=== PATIENT | female | born 1995 | race Caucasian/White ===

== ENCOUNTER 2020-06-02 09:33 | Outpatient (REF) | payer OTHER, SELFPAY ==
[2020-06-02 10:08] LABS: MANUAL DIFF FLAG NO
[2020-06-02 10:15] LABS: Basophils Percent Auto 0.3 % (0-2); Eosinophils Absolute Auto 0.1 X10*3/uL (0.0-0.4); Eosinophils Percent Auto 1.7 % (0-4); Hematocrit 40.2 % (37-47); Hemoglobin 13.2 g/dl (12.0-16.0); Imm Gran Abs Auto 0.02 X10*3/uL (0.00-0.03); Imm Gran Pct Auto 0.3 % (0.0-0.4); Lymphocytes Absolute Auto 1.5 X10*3/uL (1.2-4.9); Mean Corpuscular HGB Conc 32.8 g/dl (31.0-35.0); Mean Corpuscular Hemoglobin 29.1 pg (27.0-33.0); Mean Corpuscular Volume 88.7 fL (80-98); Mean Platelet Volume 10.5 fL (9.4-12.3); Monocytes Absolute Auto 0.4 X10*3/uL (0.1-1.2); Monocytes Percent Auto 6.7 % (2-11); Neutrophils Absolute Auto 3.9 X10*3/uL (2.0-8.3); Platelet Count 300 X10*3/uL (160-400); Red Blood Count 4.53 X10*6/uL (4.20-5.50); Red Cell Distribution Width 12.8 % (11.0-16.0); White Blood Count 5.8 X10*3/uL (4.8-10.8)
[2020-06-02 11:07] LABS: Anion Gap 11 (12-20); Blood Urea Nitrogen 12 mg/dL (9-16); Calcium 9.8 mg/dL (8.4-10.2); Carbon Dioxide 28 mmol/L (22-29); Chloride 105 mmol/L (96-108); Cholesterol 188 mg/dL; Estimated Glomerular Filt Rate > 60; Glucose Fasting 61 mg/dL (60-99); HDL Cholesterol 66 mg/dL; LDL Cholesterol Calculated 109 mg/dl; Potassium 4.8 mmol/l (3.3-5.1); Sodium 139 mmol/L (135-145); Triglycerides 65 mg/dL
[2020-06-02 11:37] LABS: TSH reflex Free T4 0.85 mIU/mL (0.32-4.0)
[2020-06-02 12:06] LABS: Reflex LDLD? No
== END 2020-06-02 09:34 | disposition home or self-care (01) ==
LOC: HO.LAB 09:33
PROVIDERS: PCP Nurse Practitioner Family; Visit Provider Nurse Practitioner Family
DX: Z00.00 Encounter for general adult medical examination without abnormal findings (principal)
CPT/HCPCS: 36415; 80048; 80061; 84443; 85025

== ENCOUNTER 2023-03-18 06:07 | Outpatient (REF) | payer OTHER, SELFPAY ==
[2023-03-18 06:20] LABS: MANUAL DIFF FLAG NO
[2023-03-18 07:18] LABS: Basophils Percent Auto 0.7 % (0-2); Eosinophils Absolute Auto 0.2 X10*3/uL (0.0-0.4); Eosinophils Percent Auto 3.2 % (0-4); Hematocrit 41.2 % (37.0-47.0); Imm Gran Abs Auto 0.02 X10*3/uL (0.00-0.03); Imm Gran Pct Auto 0.3 % (0.0-0.4); Lymphocytes Absolute Auto 1.8 X10*3/uL (1.2-4.9); Lymphocytes Percent Auto 30.1 % (20-40); Mean Corpuscular HGB Conc 31.6 g/dl (31.0-35.0); Mean Corpuscular Hemoglobin 28.6 pg (27.0-33.0); Mean Corpuscular Volume 90.7 fL (80.0-98.0); Monocytes Absolute Auto 0.4 X10*3/uL (0.1-1.2); Monocytes Percent Auto 6.8 % (2-11); Neutrophils Absolute Auto 3.5 x10*3/uL (2.0-8.3); Neutrophils Percent Auto 58.9 % (45-73); Platelet Count 303 X10*3/uL (160-400); Red Blood Count 4.54 X10*6/uL (4.20-5.50); Red Cell Distribution Width 13.1 % (11.0-16.0); White Blood Count 5.9 X10*3/uL (4.8-10.8)
[2023-03-18 07:50] LABS: Alanine Aminotransferase 41 U/L (0-31); Albumin Level 4.2 g/dL (3.5-5.0); Alkaline Phosphatase 47 U/L (39-117); Anion Gap 10 (12-20); Aspartate Amino Transferase 25 U/L (5-31); Bilirubin Total 0.7 mg/dL (0.0-1.0); Blood Urea Nitrogen 7 mg/dL (9-16); Calcium 9.8 mg/dL (8.4-10.2); Carbon Dioxide 27 mmol/L (22-29); Chloride 105 mmol/L (96-108); Cholesterol 171 mg/dL; Estimated Glomerular Filt Rate > 60; Glucose Random 85 mg/dL (60-115); HDL Cholesterol 70 mg/dL; LDL Cholesterol Calculated 91 mg/dl; Potassium 4.8 mmol/L (3.3-5.1); Sodium 137 mmol/L (135-145); Total Protein 7.4 g/dL (6.5-8.0); Triglycerides 54 mg/dL
[2023-03-18 08:10] LABS: Free T4 (Free Thyroxine) 0.94 ng/dL (0.71-1.85); Thyroid Stimulating Hormone 2.26 uIU/mL (0.32-4.0); Vitamin D 25-OH Total 30.1 ng/mL (>30)
[2023-03-18 08:32] LABS: Folate 15.1 ng/mL (> or = 4.0); Vitamin B12 597 pg/mL (200-900)
== END 2023-03-18 06:08 | disposition home or self-care (01) ==
LOC: HO.LAB 06:07
PROVIDERS: PCP Internal Medicine; Visit Provider Internal Medicine
DX: R42 Dizziness and giddiness (principal); E78.00 Pure hypercholesterolemia, unspecified; E55.9 Vitamin D deficiency, unspecified
CPT/HCPCS: 36415; 80053; 80061; 82306; 82607; 82746; 84439; 84443; 85025

== ENCOUNTER 2023-03-25 12:55 | Outpatient (AMB) | payer OTHER, SELFPAY ==
[2023-03-25 13:02] VITALS: BP 120/78; PULSE 77; O2SAT 98; BMI 21.3
--- NOTE | 2023-03-25 13:02 | MHC.PC.OV ---
Vital Signs 03/25/23 13:02 Height 5 ft 4 in Weight 56.245 kg BMI 21.3 BP 120/78 Blood Pressure Location Lt brachial Position Sitting Pulse 77 Pulse Source Pulse Oximeter Pulse Oximetry (%) 98 Oxygen Delivery Method Room Air Intake Visit Reasons: PE Allergies No Known Allergies Allergy (Verified 03/25/23 13:03) Medication List - Last Reconciled 03/25/23 by Megan Rankin MD No Known Home Meds Tobacco use date assessed: 03/25/23 Dental Screening Dental Screen Date: 03/25/23 Did you have a dental visit in the last 12 months?: Yes Did you have a dental problem in the last 6 months where you did not have access to dental care?: No Was dental information given to patient?: Patient has dentist HPI PE HPI Details 27-year-old female last seen in June 2022 complaining of lightheadedness and workup was requested. Patient is here for physical exam. Review of the blood test showed an elevated liver function test and advised to get the ultrasound done as well as repeat blood work. [facility] Surgical History (Updated 06/07/22 @ 13:52 by Megan Rankin MD) [place] teeth extracted Family History (Updated 03/25/23 @ 13:12 by Megan Rankin MD) Mother Asthma High blood pressure Father Asthma Sister No problems noted. Paternal Uncle Heart attack Social History (Updated 03/25/23 @ 13:12 by Megan Rankin MD) Housing: House Alcohol intake: current Patient Tobacco Use Status: Never used Tobacco e-Cigarette/Vaping Use: Never Used Second Hand Smoke Exposure: No Current occupational status: employed Cognitive needs: No Hearing needs: No Vision needs: Yes Questionnaire PHQ-9 Over the last 2 weeks, how often have you been bothered by any of the following problems? 1. Little interest or pleasure in doing things: not at all 2. Feeling down, depressed, or hopeless: not at all 3. Trouble falling or staying asleep, or sleeping too much: not at all 4. Feeling tired or having little energy: not at all 5. Poor appetite or overeating: not at all 6. Feeling bad about yourself - or that you are a failure or have let yourself or your family down: not at all 7. Trouble concentrating on things, such as reading the newspaper or watching television: not at all 8. Moving or speaking so slowly that other people could have noticed. Or the opposite - being so fidgety or restless that you have been moving around a lot more than usual: not at all 9. Thoughts that you would be better off or of hurting yourself in some way: not at all Total score: 0 Depression Screening Interpretation: Negative Source: Developed by Drs. Andrae Anderson, Rtuh Patino, Thomas Mcintosh and colleagues, with an educational neymar from [employer]. Thrive Questionnaire Date Thrive assessed: 03/25/23 I am a: Patient What is your living situation today?: I have a steady place to live Within the past 12 months, did the food you bought not last and you didn't have the money to get more?: Never true Within the past 12 months, did you worry whether your food would run out before you got money to buy more?: Never true Do you have trouble paying for medicines?: No Do you have trouble getting transportation to medical appointments?: No Do you have trouble paying your heating and electricity bill?: No Do you have trouble taking care of your child, family member or friend?: No Do you have trouble with day-to-day activities such as bathing, preparing meals, shopping, managing finances, etc.?: No Are you currently unemployed and looking for a job?: No Are you interested in more education?: No Currently or been in a relationship where the following occur: no concerns reported AUDIT C Alcohol Use Questionnaire (AUDIT-C) 1. How often do you have a drink containing alcohol?: Monthly or less 2. How many drinks containing alcohol do you have on a typical day when you are drinking?: 3 or 4 3. How often do you have six or more drinks on one occasion?: Never Total Score: 2 ELLY-7 AMB Questionnaire ELLY-7 Date ELLY - 7 assessed: 03/25/23 Feeling nervous, anxious, or on edge: 0 = Not at all Not being able to stop or control worryin = Not at all Worrying too much about different things: 0 = Not at all Trouble relaxin = Not at all Being so restless that it is hard to sit still: 0 = Not at all Becoming easily annoyed or irritable: 0 = Not at all Feeling afraid as if something awful might happen: 0 = Not at all Total ELLY-7 score (0-4 normal; 5-9 mild; 10-14 moderate; 15-21 severe): 0 Source: Developed by Drs. Andrae Anderson, Ruth Patino, Thomas Mcintosh and colleagues, with an educational neymar from [employer]. Review of Systems Const Denies poor appetite and Denies weakness Eyes Denies no additional complaints ENT Reports Normal hearing present, Denies dizziness, Denies nasal congestion, Denies tinnitus and Denies sore throat Card Denies chest pain, Denies syncope, Denies rapid heart rate and Denies dyspnea Resp Denies cough and Denies dyspnea GI Denies change in stool character, Reports constipation, Denies diarrhea, Denies nausea and Denies vomiting Denies urinary frequency, Denies difficulty voiding and Denies dysuria Neuro Reports Normal hearing present, Denies confusion, Denies dizziness, Denies syncope and Denies weakness Psych Denies confusion Physical exam (Primary Care) Vital Signs: Last Vital Signs Pulse 77 03/25/23 13:02 BP 120/78 03/25/23 13:02 Pulse Ox 98 03/25/23 13:02 Oxygen Delivery Method Room Air 03/25/23 13:02 BMI result Body Mass Index 21.3 Tobacco/Smoking Status: Tobacco use Status Tobacco use date assessed 03/25/23 03/25/23 13:07 Patient Tobacco Use Status Never used Tobacco 03/25/23 13:12 e-Cigarette/Vaping Use Never Used 03/25/23 13:12 PHQ-9: PHQ-9 Score PHQ-9: Total score 0 03/25/23 13:09 Depression Screening Interpretation: Negative Thrive Assessment: Date of Thrive Assessment Date Thrive assessed 03/25/23 03/25/23 13:07 Currently or been in a relationship where the following occur: no concerns reported Const General: No confusion Orientation/consciousness: No confusion HENMT Head: Yes normocephalic Ears: external ears normal and TM's normal bilaterally Face and sinus: Yes normal facial exam Mouth: moist mucous membranes Throat: Yes tonsils normal Eyes Conjunctivae: conjunctivae normal Pupils: Equal, round and reactive pupils present and Pupil accommodation reflex normal Direct Ophthalmoscopy: normal light reflex Neck Neck: No lymphadenopathy Thyroid: Thyroid normal Chest Chest palpation & inspection: normal inspection of the chest Resp Effort & Inspection: normal respiratory effort and no audible wheezes Auscultation: clear to auscultation bilaterally, no crackles, no wheezes and lung sounds not diminished Cardio Rate: regular rate Rhythm: regular rhythm Peripheral pulses: radial pulses present and dorsalis pedis present GI Palpation (GI): no masses Auscultation: normal bowel sounds and normoactive bowel sounds Rectal Exam - Female: deferred Skin General skin exam: no rashes or lesions noted Rashes: no rashes Neuro General: No confusion Cranial nerves: Yes Equal, round and reactive pupils present and Yes Normal hearing present Cognition (Neuro): normal cognition Gait exam (Neuro): Normal gait present Motor exam (neuro): 5/5 motor strength present throughout Deep tendon reflexes (DTR's): Right brachioradialis reflex intensity grade: 2+, Left brachioradialis reflex intensity grade: 2+, Right patellar reflex intensity grade: 2+ and Left patellar reflex intensity grade: 2+ Extrem General: No edema Immunizations Boostrix Tdap Performing Provider: Megan Rankin MD Administered by: WILL Roach on 03/25/23 13:30 Dose Route Admin Location Lot Number Expiration Date 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 0.5 mL IM Right Deltoid [id number] 06/11/22 [id number] [place] VIS Given Date VIS Provided VIS Publication Date 03/25/23 Single Vaccine 21 Eligibility Eligibility Date Funding Source Not [facility] Eligible 03/25/23 Private Assessment and Plan Assessment & Plan (1) Annual physical exam: Code(s): Z00.00 - Encounter for general adult medical examination without abnormal findings (2) LFT elevation: Code(s): R79.89 - Other specified abnormal findings of blood chemistry Plan: Advised to get repeat blood work as well as ultrasound of the abdomen Orders: Orders US abdomen complete Today R79.89 - Other specified abnormal findings of blood chemistry TDaP Immunization Today Z23 - Encounter for immunization Coding Level of Care Code Est Pt Prev Care 18-39y(53316) Diagnoses Annual physical exam Z00.00 LFT elevation R79.89
== END 2023-03-25 13:29 | disposition home or self-care (01) ==
PROVIDERS: Visit Provider Internal Medicine
DX: Z00.00 Encounter for general adult medical examination without abnormal findings (principal); R79.89 Other specified abnormal findings of blood chemistry; Z23 Encounter for immunization
CPT/HCPCS: 90471; 90715; 99395

== ENCOUNTER 2023-04-24 07:45 | Outpatient (REF) | payer OTHER, SELFPAY ==
--- NOTE | ~2023-04-24 | US_ITS ---
EXAMINATION: US ABDOMEN COMPLETE CLINICAL INFORMATION: Other specified abnormal findings of blood chemistry. COMPARISON: None available. TECHNIQUE: Real-time imaging of the abdominal viscera. FINDINGS: PANCREAS: Normal. ABDOMINAL AORTA: The proximal and distal segments are normal in caliber. The mid segment is obscured by overlapping bowel gas. INFERIOR VENA CAVA: Visualized portions are normal. LIVER: The liver is normal in size. The liver contour is normal. Parenchymal echogenicity is normal. Inferiorly within the right lower lobe, a 1.8 x 1.2 x 1.7 cm heterogeneously hypoechoic mass is seen. This shows mild associated color Doppler flow. There is no intrahepatic biliary duct dilatation seen. GALLBLADDER: A 3 mm nonmobile polyp is incidentally noted. The gallbladder is physiologically distended without evidence of stones, sludge, wall thickening or pericholecystic fluid. COMMON BILE DUCT: Normal in caliber measuring 0.3 cm in diameter. RIGHT KIDNEY: There is mild pelviectasis, without alyson hydronephrosis. No renal calculi or focal parenchymal lesions. The kidney measures 9.7 cm in maximum dimension. LEFT KIDNEY: Normal. No hydronephrosis. No renal calculi or focal parenchymal lesions. The kidney measures 9.3 cm in maximum dimension. SPLEEN: Normal. The spleen measures 11.4 cm in maximum dimension. FREE FLUID: None. US/US abdomen complete IMPRESSION: 1. A 1.8 cm hypoechoic, nonspecific mass arising exophytically from the inferior margin of the right hepatic lobe. There is positive central Doppler flow. Consider further evaluation with CT or MRI. 2. There is no alteration in hepatic echotexture or biliary ductal dilatation. 3. A 3 mm nonmobile gallbladder polyp is incidentally noted.
[2023-04-24 10:54] LABS: Alanine Aminotransferase 27 U/L (0-31); Albumin Level 4.3 g/dL (3.5-5.0); Alkaline Phosphatase 44 U/L (39-117); Anion Gap 10 (12-20); Aspartate Amino Transferase 28 U/L (5-31); Bilirubin Total 0.5 mg/dL (0.0-1.0); Blood Urea Nitrogen 10 mg/dL (9-16); Calcium 9.9 mg/dL (8.4-10.2); Carbon Dioxide 28 mmol/L (22-29); Chloride 106 mmol/L (96-108); Estimated Glomerular Filt Rate > 60; Glucose Random 76 mg/dL (60-115); Potassium 4.6 mmol/L (3.3-5.1); Sodium 139 mmol/L (135-145); Total Protein 7.7 g/dL (6.5-8.0)
[2023-04-24 10:57] LABS: Ferritin 51 ng/mL (10-122)
[2023-04-24 11:06] LABS: HBc Num1 0.09 S/CO (0.00-0.79); HBsAGNum1 0.29 S/CO (0.00-0.99); Hepatitis B Core Antibody Nonreactive (Nonreactive); Hepatitis B Surface Antigen Negative (Negative); ~HepC Num1 0.06 S/CO (0.00-0.79); ~Hepatitis B Surface Antibody REACTIVE (Nonreactive); ~Hepatitis C Antibody Nonreactive (Nonreactive)
== END 2023-04-24 07:46 | disposition home or self-care (01) ==
LOC: HO.US 07:45
PROVIDERS: PCP Internal Medicine; Visit Provider Internal Medicine
DX: R79.89 Other specified abnormal findings of blood chemistry (principal)
CPT/HCPCS: 36415; 76700; 80053; 82728; 86704; 86706; 86803; 87340

== ENCOUNTER 2023-06-10 09:19 | Outpatient (AMB) | payer OTHER, SELFPAY ==
--- NOTE | 2023-06-10 09:23 | MHC.OFFVIS ---
Intake Vital Signs 06/10/23 09:25 Height 5 ft 4 in Weight 123 lb 7.342 oz BMI 21.2 BP 119/86 Blood Pressure Location Lt brachial Position Sitting Pulse 77 Intake Visit Reasons: Hepatomegaly Intake Note: Ti presents in the office as a new patient for Hepatomegaly. CC: She states that she is not having any pains in her stomach. No irregular bowel movements. Allergies No Known Allergies Allergy (Verified 06/10/23 09:26) HPI HPI Comments History of Present Illness Details This is a 28y.o F with no PMH who is here for abnormal liver lesion. Pt had annual labs checked that showed mildly elevated ALT in March. This prompted an US Abd that showed an exophytic 1.8 x 1.2 x 1.7 cm heterogeneously hypoechoic mass from R lower lobe. Her recheck LFTs were normal. Pt herself does not report any abd pain, N,V, rash. Does not drink alcohol, IV drug use. No history of abdominal trauma. Does not take OCP. No family history of liver disease in first-degree relatives. Works for [employer], but does not report exposure to any volatile chemicals. No recent travel or new meds x 6 months. PFSH Surgical History [place] teeth extracted Family History Mother Asthma High blood pressure Father Asthma Sister No problems noted. Paternal Uncle Heart attack Social History Housing: House Alcohol intake: current Patient Tobacco Use Status: Never used Tobacco e-Cigarette/Vaping Use: Never Used Second Hand Smoke Exposure: No Current occupational status: employed Cognitive needs: No Hearing needs: No Vision needs: Yes Review of Systems Const All systems reviewed & are unremarkable except as noted in HPI and below Physical Exam Vital Signs: Last Vital Signs Pulse 77 06/10/23 09:25 BP 119/86 06/10/23 09:25 BMI result Body Mass Index 21.2 Gen appear: NAD HEENT: nonicteric, no cervical lymphadenopathy Chest: CTA CVS: Regular S1/S2 Abd: soft, nontender, nondistended, bowel sounds + Ext: no peripheral edema Neuro: A/Ox3, noted to move all extremities spontaneously Psych: interacting appropriately Assessment & Plan Assessment & Plan (1) Liver mass: Code(s): R16.0 - Hepatomegaly, not elsewhere classified Plan Incidental finding on US liver. Most likely hemangioma vs FNH. Liver protocol MRI ordered. Pt requests open MRI. Surveillance/management will be contingent on type of lesion determined by MRI Follow up after imaging. Orders: Orders MR abdomen wo/w con Today R16.0 - Hepatomegaly, not elsewhere classified Coding Level of Care Code New Pt Level 4 (85685) Diagnoses Liver mass R16.0
[2023-06-10 09:25] VITALS: BP 119/86; PULSE 77; BMI 21.2
== END 2023-06-10 10:07 | disposition home or self-care (01) ==
PROVIDERS: PCP Internal Medicine; Visit Provider Internal Medicine
DX: R16.0 Hepatomegaly, not elsewhere classified (principal)
CPT/HCPCS: 99204

== ENCOUNTER → 2023-06-10 09:19 | Outpatient (BNVA) | payer OTHER, SELFPAY | PROVIDERS: PCP Internal Medicine; Visit Provider Internal Medicine ==

== ENCOUNTER 2023-07-22 08:38 | Outpatient (AMB) | payer OTHER, SELFPAY ==
[2023-07-22 08:42] VITALS: BP 132/85; PULSE 80; BMI 21.4
--- NOTE | 2023-07-22 08:42 | A.OFFVIS_ITS ---
Intake Vital Signs 07/22/23 08:42 Height 5 ft 4 in Weight 124 lb 12.506 oz BMI 21.4 BP 132/85 Blood Pressure Location Lt brachial Position Sitting Pulse 80 Intake Visit Reasons: 6 week follow up Liver mass Dr. Cerda PT Intake Note: Ti presents in the office in follow up of MR of the abdomen and Hepatomegaly. CC: Patient reports denies having any concerns or GI symptoms. Talent Assistant Required: No Accompanied by: Mother Allergies No Known Allergies Allergy (Verified 07/22/23 08:48) HPI 6 week follow up Liver mass Dr. Cerda PT HPI Details LAST VISIT WITH DR. CERDA 06/10/23 Plan Incidental finding on US liver. Most likely hemangioma vs FNH. Liver protocol MRI ordered. Pt requests open MRI. Surveillance/management will be contingent on type of lesion determined by MRI Follow up after imaging. Orders: Orders MR abdomen wo/w con Today R16.0 - Hepatomegaly, not elsewhere classified TODAY'S VISIT: Patient is here today for follow-up and to discuss MRI results. Patient denies any GI concerning symptoms. Patient is accompanied by her mom. Patient was seen previously by Dr. Cerda, referred to our department for evaluation of lesion that was seen on has liver via ultrasound. Patient was referred for MRI. MRI did show no lesion, normal MRI. No hepatic steatosis seen normal pancreas. PFSH Surgical History [place] teeth extracted Family History Mother Asthma High blood pressure Father Asthma Sister No problems noted. Paternal Uncle Heart attack Social History Housing: House Alcohol intake: current Patient Tobacco Use Status: Never used Tobacco e-Cigarette/Vaping Use: Never Used Second Hand Smoke Exposure: No Current occupational status: employed Cognitive needs: No Hearing needs: No Vision needs: Yes Review of Systems Const Denies weight gain and Denies weight loss ENT Reports no additional complaints, Denies dysphagia and Denies odynophagia Card Reports no additional complaints Resp Reports no additional complaints GI Denies abdominal pain, Denies belching, Denies melena, Denies bloating, Denies change in bowel habits, Denies dysphagia, Denies excessive flatus, Denies dyspepsia, Denies heartburn, Denies diarrhea, Denies loose stools, Denies nausea, Denies odynophagia and Denies vomiting Reports no additional complaints Musc Reports no additional complaints Neuro Reports no additional complaints Psych Reports no additional complaints Endo Reports no additional complaints Physical Exam Vital Signs: Last Vital Signs Pulse 80 07/22/23 08:42 BP 132/85 07/22/23 08:42 BMI result Body Mass Index 21.4 Const General: healthy appearing, no acute distress and well developed Nutritional Appearance: well nourished Orientation/consciousness: patient oriented x3 HEENT Head: Yes normal to inspection, Yes normocephalic and Yes atraumatic Face and sinus: Yes normal facial exam Mouth: Normal oral and palatal mucosa present Throat: Yes posterior oropharynx normal, Yes tonsils normal and Yes uvula midline Eyes General: appearance normal, both eyes and all related structures Neck Neck: Yes normal visual inspection, Yes full ROM and Yes trachea midline Thyroid: Thyroid normal Resp Effort & Inspection: normal respiratory effort, able to speak in complete sentences, no tracheal deviation and symmetric chest movement Auscultation: clear to auscultation bilaterally Cardio Rate: regular rate Heart sounds: S1 normal heart sound present and S2 normal heart sound present GI Inspection: Yes normal to inspection and No distended Palpation (GI): Soft to palpation, not firm, nontender and No hepatosplenomegaly present Auscultation: normal bowel sounds General: Yes no CVA tenderness Back/Spine/Pelvis Back: no CVA tenderness Skin General skin exam: elasticity normal, turgor normal and dry skin Neuro General: patient oriented x3 Psych Appearance: grossly normal Mental Status: mental status grossly normal Results Reviewed Results Reviewed: ABDOMINAL MRI No focal lesion seen on MRI, please see report scanned to patient's chart from [facility]. Assessment & Plan Assessment & Plan (1) Liver mass: Code(s): R16.0 - Hepatomegaly, not elsewhere classified Plan Normal MRI, last liver enzymes were normal. Patient denies any abdominal pain or discomfort. Will follow-up in the office on as needed basis. Both patient and her mom are agreeable to plan of care and verbalized understanding of instructions. They were given the opportunity to ask questions and all questions answered. Thank you for allowing me to participate in her care Coding Level of Care Code Est Pt Level 3 (95671) Diagnoses Liver mass R16.0 Time Spent (min) 25 Comment 15 minutes spent with patient and additional 10 minutes spent reviewing her records
== END 2023-07-22 09:12 | disposition home or self-care (01) ==
PROVIDERS: PCP Internal Medicine; Visit Provider Nurse Practitioner Family
DX: R16.0 Hepatomegaly, not elsewhere classified (principal)
CPT/HCPCS: 99213

== ENCOUNTER → 2023-07-22 08:38 | Outpatient (BNVA) | payer OTHER, SELFPAY | PROVIDERS: PCP Internal Medicine; Visit Provider Nurse Practitioner Family ==

== ENCOUNTER 2024-01-14 08:16 | Outpatient (REF) | payer OTHER, SELFPAY ==
--- NOTE | ~2024-01-14 | XR_ITS ---
EXAMINATION: XR ANKLE, LEFT CLINICAL INFORMATION: Unspecified injury left ankle. COMPARISON: None available. TECHNIQUE: AP, lateral, and mortise views of the left ankle. Exam provided for interpretation on 01/28/2024. FINDINGS: No focal soft tissue swelling. Alignment is anatomic. No joint effusion. No visible fracture. XR/XR ankle LT 2V IMPRESSION: No visible fracture.
== END 2024-01-14 08:17 | disposition home or self-care (01) ==
LOC: HO.XRAY 08:16
PROVIDERS: PCP Internal Medicine; Visit Provider Physician Assistant
DX: S99.912A Unspecified injury of left ankle, initial encounter (principal)
CPT/HCPCS: 73600

== ENCOUNTER 2024-03-10 08:17 | Outpatient (AMB) | payer OTHER, SELFPAY ==
--- NOTE | 2024-03-10 08:39 | MHC.OFFWIV ---
Intake Vital Signs 03/10/24 08:49 Height 5 ft 4 in Weight 124 lb BMI 21.3 BP 118/72 Blood Pressure Location Rt brachial Position Sitting Pulse 76 Pulse Source Pulse Oximeter Temp 98.0 F Temp Source Temporal Artery Scan Pulse Oximetry (%) 97 Intake Visit Reasons: EP sore throat chills stuffy nose headache Intake Note: pt is here for sore throat, chills and headache. mom and step dad both have covid Patient Tobacco Use Status: Never used Tobacco Allergies No Known Allergies Allergy (Verified 03/10/24 08:50) Do you need a note to return to daycare/school/sports/work: No HPI HPI Comments History of Present Illness Details Patient is a 28-year-old female complaining of 2 days of chills, headaches, body aches, fatigue and a sore throat. She denies any cough, head congestion, chest congestion, sinus pain, ear pain, shortness of breath, chest pain, wheezing or fevers. She denies any history of asthma. She states her mom has been sick for 5 days and was diagnosed with COVID after returning from a trip from [place]. She has been taking [id number] medications to treat her symptoms. [facility] Surgical History [place] teeth extracted Family History Mother Asthma High blood pressure Father Asthma Sister No problems noted. Paternal Uncle Heart attack Social History Housing: House Alcohol intake: current Patient Tobacco Use Status: Never used Tobacco e-Cigarette/Vaping Use: Never Used Second Hand Smoke Exposure: No Current occupational status: employed Cognitive needs: No Hearing needs: No Vision needs: Yes Review of Systems Const All systems reviewed & are unremarkable except as noted in HPI and below Physical Exam Vital Signs: Last Vital Signs Temp 98.0 F 03/10/24 08:49 Pulse 76 03/10/24 08:49 BP 118/72 03/10/24 08:49 Pulse Ox 97 03/10/24 08:49 BMI result Body Mass Index 21.3 Const General: cooperative, healthy appearing, comfortable and no acute distress Orientation/consciousness: patient oriented x3 Limitations: no limitations HEENT Head: Yes normal to inspection Ears: hearing grossly normal bilaterally, external ears normal and TM's normal bilaterally General nose exam: Normal external nose present, Normal nares present and No nasal discharge present Face and sinus: Yes normal facial exam and Yes sinuses nontender Mouth: Normal oral and palatal mucosa present and moist mucous membranes Throat: Yes tonsils normal, Yes uvula midline and Yes posterior oropharynx abnormal (Erythema) Eyes General: appearance normal, both eyes and all related structures Neck Neck: Yes normal visual inspection Resp Effort & Inspection: normal respiratory effort and able to speak in complete sentences Skin General skin exam: no rashes or lesions noted Neuro General: patient oriented x3 Extrem General: Yes normal to inspection and Yes no clubbing, cyanosis or edema Assessment & Plan Assessment & Plan (1) URI (upper respiratory infection): Code(s): J06.9 - Acute upper respiratory infection, unspecified Qualifiers: URI type: unspecified viral URI Qualified Code(s): J06.9 - Acute upper respiratory infection, unspecified Plan: Very likely COVID, sent flu/COVID/RSV testing and wrote a work note for 5 days. Discussed continuing symptomatic treatment with [id number] medication and staying out of work and isolating until she is symptom free for 24 hours. Plan see above Orders: Orders SARS-CoV2/FLU/RSV Today J06.9 - Acute upper respiratory infection, unspecified Coding Level of Care Code Est Pt Level 3 (06323) Diagnoses Viral upper respiratory tract infection J06.9 URI type: unspecified viral URI
[2024-03-10 08:49] VITALS: BP 118/72; PULSE 76; TEMP 36.7; O2SAT 97; BMI 21.3
== END 2024-03-10 09:17 | disposition home or self-care (01) ==
PROVIDERS: PCP Internal Medicine; Visit Provider Physician Assistant
DX: J06.9 Acute upper respiratory infection, unspecified (principal); J02.9 Acute pharyngitis, unspecified
CPT/HCPCS: 87880; 99213

== ENCOUNTER 2024-03-10 09:04 | Outpatient (REF) | payer OTHER, SELFPAY ==
[2024-03-10 11:44] LABS: Influenza A PCR NEGATIVE (Negative); Influenza B PCR NEGATIVE (Negative); Resp Syncy Virus RNA Qual PCR NEGATIVE (Negative); SARS COV2 PCR INHOUSE NEGATIVE (Negative)
== END 2024-03-10 09:05 | disposition home or self-care (01) ==
LOC: HO.LAB 09:04
PROVIDERS: Visit Provider Physician Assistant
DX: J06.9 Acute upper respiratory infection, unspecified (principal)
CPT/HCPCS: 0241U

== ENCOUNTER 2024-04-22 14:55 | Outpatient (AMB) | payer OTHER, SELFPAY ==
--- NOTE | 2024-04-22 14:56 | A.OFFPC_ITS ---
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 Accompanied by: Self / Same As Patient Allergies No Known Allergies Allergy (Verified 04/22/24 14:57) Medication List - Last Reconciled 04/22/24 by Megan Rankin MD No Known Home Meds Tobacco use date assessed: 04/22/24 Dental Screening Dental Screen Date: 04/22/24 Did you have a dental visit in the last 12 months?: Yes Did you have a dental problem in the last 6 months where you did not have access to dental care?: No Was dental information given to patient?: Patient has dentist HPI Annual Exam HPI Details 28-year-old female with a recent LFT hayden vatconstance coming in for physical exam last seen in 03/20/2023. Review of the notes has been following up with the Gastroenterology having hepatomegaly. Question of hemangioma versus focal nodular hyperplasia. Normal MRI. [facility] Medical History (Updated 04/22/24 @ 15:46 by Megan Rankin MD) Liver mass Surgical History [place] teeth extracted Family History Mother Asthma High blood pressure Father Asthma Sister No problems noted. Paternal Uncle Heart attack Social History (Updated 04/22/24 @ 15:49 by Megan Rankin MD) Housing: House Alcohol intake: current Comment: 3x a month 6 pack Patient Tobacco Use Status: Never used Tobacco Tobacco use type: Cigarette e-Cigarette/Vaping Use: Never Used Second Hand Smoke Exposure: No Current occupational status: employed Cognitive needs: No Hearing needs: No Vision needs: Yes Questionnaire PHQ-9 Over the last 2 weeks, how often have you been bothered by any of the following problems? 1. Little interest or pleasure in doing things: not at all 2. Feeling down, depressed, or hopeless: not at all 3. Trouble falling or staying asleep, or sleeping too much: not at all 4. Feeling tired or having little energy: not at all 5. Poor appetite or overeating: not at all 6. Feeling bad about yourself - or that you are a failure or have let yourself or your family down: not at all 7. Trouble concentrating on things, such as reading the newspaper or watching television: not at all 8. Moving or speaking so slowly that other people could have noticed. Or the opposite - being so fidgety or restless that you have been moving around a lot more than usual: not at all 9. Thoughts that you would be better off or of hurting yourself in some way: not at all Total score: 0 Depression Screening Interpretation: Negative Depression Screening Done: Yes Source: Developed by Drs. Andrae Anderson, Ruth Patino, Thomas Mcintosh and colleagues, with an educational neymar from [employer]. Thrive Questionnaire Date Thrive assessed: 04/22/24 I am a: Patient What is your living situation today?: I have a steady place to live Within the past 12 months, did the food you bought not last and you didn't have the money to get more?: Never true Within the past 12 months, did you worry whether your food would run out before you got money to buy more?: Never true Do you have trouble paying for medicines?: No Do you have trouble getting transportation to medical appointments?: No Do you have trouble paying your heating and electricity bill?: No Do you have trouble taking care of your child, family member or friend?: No Do you have trouble with day-to-day activities such as bathing, preparing meals, shopping, managing finances, etc.?: No Are you currently unemployed and looking for a job?: No Are you interested in more education?: No THRIVE Score: 0 AUDIT C Alcohol Use Questionnaire (AUDIT-C) 1. How often do you have a drink containing alcohol?: Monthly or less 2. How many drinks containing alcohol do you have on a typical day when you are drinking?: 3 or 4 3. How often do you have six or more drinks on one occasion?: Never Total Score: 2 ELLY-7 AMB Questionnaire ELLY-7 Date ELLY - 7 assessed: 04/22/24 Feeling nervous, anxious, or on edge: 0 = Not at all Not being able to stop or control worryin = Not at all Worrying too much about different things: 0 = Not at all Trouble relaxin = Not at all Being so restless that it is hard to sit still: 0 = Not at all Becoming easily annoyed or irritable: 0 = Not at all Feeling afraid as if something awful might happen: 0 = Not at all Total ELLY-7 score (0-4 normal; 5-9 mild; 10-14 moderate; 15-21 severe): 0 Source: Developed by Drs. Andrae Anderson, Ruth Patino, Thomas Mcintosh and colleagues, with an educational neymar from [employer]. Review of Systems Const Denies poor appetite and Denies weakness Eyes Denies no additional complaints ENT Reports Normal hearing present, Denies dizziness, Denies nasal congestion, Denies tinnitus and Denies sore throat Card Denies chest pain, Denies syncope, Denies rapid heart rate and Denies dyspnea Resp Denies cough and Denies dyspnea GI Denies change in stool character, Reports constipation, Denies diarrhea, Denies nausea and Denies vomiting Denies urinary frequency, Denies difficulty voiding and Denies dysuria Neuro Reports Normal hearing present, Denies confusion, Denies dizziness, Denies syncope and Denies weakness Psych Denies confusion Physical exam (Primary Care) Vital Signs: Last Vital Signs Pulse 67 04/22/24 14:57 BP 110/72 04/22/24 14:57 Pulse Ox 99 04/22/24 14:57 Oxygen Delivery Method Room Air 04/22/24 14:57 BMI result Body Mass Index 21.8 Tobacco/Smoking Status: Tobacco use Status Tobacco use date assessed 04/22/24 04/22/24 14:59 Patient Tobacco Use Status Never used Tobacco 04/22/24 14:59 Tobacco use type Cigarette 04/22/24 14:59 e-Cigarette/Vaping Use Never Used 04/22/24 14:59 PHQ-9: PHQ-9 Score PHQ-9: Total score 0 04/22/24 15:01 Depression Screening Interpretation: Negative Thrive Assessment: Date of Thrive Assessment Date Thrive assessed 04/22/24 04/22/24 14:59 Const General: alert and awake; No confusion Orientation/consciousness: No confusion HENMT Head: Yes normocephalic Ears: external ears normal and TM's normal bilaterally Face and sinus: Yes normal facial exam Mouth: moist mucous membranes Throat: Yes tonsils normal Eyes Conjunctivae: conjunctivae normal Pupils: Equal, round and reactive pupils present and Pupil accommodation reflex normal Direct Ophthalmoscopy: normal light reflex Neck Neck: No lymphadenopathy Thyroid: Thyroid normal Chest Chest palpation & inspection: normal inspection of the chest Resp Effort & Inspection: normal respiratory effort and no audible wheezes Auscultation: clear to auscultation bilaterally, no crackles, no wheezes and lung sounds not diminished Cardio Rate: regular rate Rhythm: regular rhythm Peripheral pulses: radial pulses present and dorsalis pedis present GI Palpation (GI): no masses Auscultation: normal bowel sounds and normoactive bowel sounds Rectal Exam - Female: deferred Skin General skin exam: no rashes or lesions noted Rashes: no rashes Neuro General: deep tendon reflexes 2+ bilaterally and No confusion Cranial nerves: Yes Equal, round and reactive pupils present, Yes Midline tongue present, Yes Normal hearing present and Yes Ability to bilaterally elevate shoulders present Cognition (Neuro): normal cognition Gait exam (Neuro): Normal gait present Motor exam (neuro): 5/5 motor strength present throughout Deep tendon reflexes (DTR's): Right brachioradialis reflex intensity grade: 2+, Left brachioradialis reflex intensity grade: 2+, Right patellar reflex intensity grade: 2+ and Left patellar reflex intensity grade: 2+ Extrem General: No edema Assessment and Plan Assessment & Plan (1) Annual physical exam: Code(s): Z00.00 - Encounter for general adult medical examination without abnormal findings Plan: Patient is advised to eat healthy, keep well hydrated, keep active and have adequate sleep. (2) LFT elevation: Code(s): R79.89 - Other specified abnormal findings of blood chemistry Plan: Resolved Coding Level of Care Code Est Pt Prev Care 18-39y(14086) Diagnoses Annual physical exam Z00.00 LFT elevation R79.89
[2024-04-22 14:57] VITALS: BP 110/72; PULSE 67; O2SAT 99; BMI 21.8
== END 2024-04-22 15:57 | disposition home or self-care (01) ==
PROVIDERS: PCP Internal Medicine; Visit Provider Internal Medicine
DX: Z00.00 Encounter for general adult medical examination without abnormal findings (principal); R79.89 Other specified abnormal findings of blood chemistry
CPT/HCPCS: 99395

== ENCOUNTER 2025-04-27 10:22 | Outpatient (AMB) | payer OTHER, SELFPAY ==
[2025-04-27 10:31] VITALS: BP 104/68; PULSE 67; O2SAT 98; BMI 23.2
--- NOTE | 2025-04-27 10:31 | A.OFFPC_ITS ---
Vital Signs 04/27/25 10:31 Height 5 ft 4 in Weight 135 lb BMI 23.2 BP 104/68 Blood Pressure Location Lt brachial Position Sitting Pulse 67 Pulse Source Pulse Oximeter Pulse Oximetry (%) 98 Oxygen Delivery Method Room Air Intake Visit Reasons: ANNUAL Allergies No Known Allergies Allergy (Verified 04/27/25 10:32) Medication List - Last Reconciled 04/27/25 by Megan Rankin MD No Known Home Meds Tobacco use date assessed: 04/27/25 Dental Screening Dental Screen Date: 04/27/25 Did you have a dental visit in the last 12 months?: Yes Did you have a dental problem in the last 6 months where you did not have access to dental care?: No Was dental information given to patient?: Patient has dentist [facility] Medical History (Updated 04/22/24 @ 15:46 by Megan Rankin MD) Liver mass Surgical History [place] teeth extracted Family History (Updated 04/27/25 @ 11:17 by Megan Rankin MD) Mother Asthma High blood pressure Breast cancer Father Asthma Sister No problems noted. Paternal Uncle Heart attack Social History (Updated 04/27/25 @ 11:19 by Megan Rankin MD) Housing: House Alcohol intake: current Comment: 3x a month 6 pack 2x a month (04/2025) Patient Tobacco Use Status: Never used Tobacco Tobacco use type: Cigarette e-Cigarette/Vaping Use: Never Used Second Hand Smoke Exposure: No Current occupational status: employed Cognitive needs: No Hearing needs: No Vision needs: Yes Questionnaire PHQ-9 Over the last 2 weeks, how often have you been bothered by any of the following problems? 1. Little interest or pleasure in doing things: not at all 2. Feeling down, depressed, or hopeless: not at all 3. Trouble falling or staying asleep, or sleeping too much: not at all 4. Feeling tired or having little energy: not at all 5. Poor appetite or overeating: not at all 6. Feeling bad about yourself - or that you are a failure or have let yourself or your family down: not at all 7. Trouble concentrating on things, such as reading the newspaper or watching television: not at all 8. Moving or speaking so slowly that other people could have noticed. Or the opposite - being so fidgety or restless that you have been moving around a lot more than usual: not at all 9. Thoughts that you would be better off or of hurting yourself in some way: not at all Total score: 0 Depression Screening Interpretation: Negative Depression Screening Done: Yes Source: Developed by Drs. Andrae Anderson, Ruth Patino, Thomas Mcintosh and colleagues, with an educational neymar from [employer]. Thrive Questionnaire Date Thrive assessed: 04/25/25 I am a: Patient What is your living situation today?: I have a steady place to live Within the past 12 months, did the food you bought not last and you didn't have the money to get more?: I choose not to answer this question Within the past 12 months, did you worry whether your food would run out before you got money to buy more?: I choose not to answer this question Do you have trouble paying for medicines?: No Do you have trouble getting transportation to medical appointments?: No Do you have trouble paying your heating and electricity bill?: No Do you have trouble taking care of your child, family member or friend?: No Do you have trouble with day-to-day activities such as bathing, preparing meals, shopping, managing finances, etc.?: No Are you currently unemployed and looking for a job?: No Are you interested in more education?: I choose not to answer this question Please select the resources that you would like help with: None Currently or been in a relationship where the following occur: I choose not to answer THRIVE Score: 0 AUDIT C Alcohol Use Questionnaire (AUDIT-C) 1. How often do you have a drink containing alcohol?: 2-4 times a month 2. How many drinks containing alcohol do you have on a typical day when you are drinking?: 3 or 4 3. How often do you have six or more drinks on one occasion?: Less than monthly Total Score: 4 ELLY-7 AMB Questionnaire ELLY-7 Date ELLY - 7 assessed: 04/27/25 Feeling nervous, anxious, or on edge: 0 = Not at all Not being able to stop or control worryin = Not at all Worrying too much about different things: 0 = Not at all Trouble relaxin = Not at all Being so restless that it is hard to sit still: 0 = Not at all Becoming easily annoyed or irritable: 1 = Several days Feeling afraid as if something awful might happen: 0 = Not at all Total ELLY-7 score (0-4 normal; 5-9 mild; 10-14 moderate; 15-21 severe): 1 Source: Developed by Drs. Andrae Anderson, Ruth Patino, Thomas Mcintosh and colleagues, with an educational neymar from [employer]. Review of Systems Const Denies poor appetite and Denies weakness Eyes Denies no additional complaints ENT Reports Normal hearing present, Denies dizziness, Denies nasal congestion, Denies tinnitus and Denies sore throat Card Denies chest pain, Denies syncope, Denies rapid heart rate and Denies dyspnea Resp Denies cough and Denies dyspnea GI Denies change in stool character, Reports constipation, Denies diarrhea, Denies nausea and Denies vomiting Denies urinary frequency, Denies difficulty voiding and Denies dysuria Neuro Reports Normal hearing present, Denies confusion, Denies dizziness, Denies syncope and Denies weakness Psych Denies confusion Physical exam (Primary Care) Vital Signs: Last Vital Signs Pulse 67 04/27/25 10:31 BP 104/68 04/27/25 10:31 Pulse Ox 98 04/27/25 10:31 Oxygen Delivery Method Room Air 04/27/25 10:31 BMI result Body Mass Index 23.2 Tobacco/Smoking Status: Tobacco use Status Tobacco use date assessed 04/27/25 04/27/25 10:32 Patient Tobacco Use Status Never used Tobacco 04/27/25 11:19 Tobacco use type Cigarette 04/27/25 11:19 e-Cigarette/Vaping Use Never Used 04/27/25 11:19 PHQ-9: PHQ-9 Score PHQ-9: Total score 0 04/27/25 11:14 Depression Screening Interpretation: Negative Thrive Assessment: Date of Thrive Assessment Date Thrive assessed 04/25/25 04/27/25 10:32 Currently or been in a relationship where the following occur: I choose not to answer Const General: No confusion Orientation/consciousness: No confusion HENMT Head: Yes normocephalic Ears: external ears normal and TM's normal bilaterally Face and sinus: Yes normal facial exam Mouth: moist mucous membranes Throat: Yes tonsils normal Eyes Conjunctivae: conjunctivae normal Pupils: Equal, round and reactive pupils present and Pupil accommodation reflex normal Direct Ophthalmoscopy: normal light reflex Neck Neck: No lymphadenopathy Thyroid: Thyroid normal Chest Chest palpation & inspection: normal inspection of the chest Resp Effort & Inspection: normal respiratory effort and no audible wheezes Auscultation: clear to auscultation bilaterally, no crackles, no wheezes and lung sounds not diminished Cardio Rate: regular rate Rhythm: regular rhythm Peripheral pulses: radial pulses present and dorsalis pedis present GI Palpation (GI): no masses Auscultation: normal bowel sounds and normoactive bowel sounds Rectal Exam - Female: deferred Skin General skin exam: no rashes or lesions noted Rashes: no rashes Neuro General: No confusion Cranial nerves: Yes Equal, round and reactive pupils present and Yes Normal hearing present Cognition (Neuro): normal cognition Gait exam (Neuro): Normal gait present Motor exam (neuro): 5/5 motor strength present throughout Deep tendon reflexes (DTR's): Right brachioradialis reflex intensity grade: 2+, Left brachioradialis reflex intensity grade: 2+, Right patellar reflex intensity grade: 2+ and Left patellar reflex intensity grade: 2+ Extrem General: No edema Coding Level of Care Code Est Pt Prev Care 18-39y(99174) Diagnoses Annual physical exam Z00.00 Assessment & Plan Assessment & Plan (1) Annual physical exam: Code(s): Z00.00 - Encounter for general adult medical examination without abnormal findings Category: Medical Plan History of Present Illness The patient is a 29-year-old female presenting for a routine physical examination and preventative care. She reports no new diagnoses or surgeries since her last visit. Her last blood work in 2022 showed normal results across various parameters including blood count, electrolytes, renal function, blood sugar, liver function, and cholesterol levels. The patient has a family history of breast cancer, with her mother diagnosed at the age of 48. She is aware of the need for early mammogram screening due to this family history. Socially, she consumes alcohol a couple of times a month, typically three drinks at a time, and does not use tobacco or recreational drugs. She denies any symptoms such as dizziness, nausea, vomiting, fever, or swallowing difficulties. Her lifestyle includes limited physical activity, and she acknowledges the importance of staying active for circulation and overall health. She has not been sexually active recently and understands the implications for Pap smear requirements. Health Maintenance - Mammogram screening discussed due to family history of breast cancer - Importance of physical activity for circulation and health emphasized - Dietary recommendations include more plant proteins and less animal proteins - Vaccination status reviewed; flu shot recommended in June Social History - Alcohol consumption: Drinks alcohol a couple of times a month, typically three drinks at a time - Tobacco and recreational drug use: Denies use - Physical activity: Limited exercise, advised to increase activity for health benefits Review of Systems - General: Denies dizziness, nausea, vomiting, fever - Cardiovascular: Denies chest pain, dyspnea, or palpitations - Gastrointestinal: Denies heartburn, constipation, diarrhea - Genitourinary: Denies dysuria, nocturia Physical Exam General: Cooperative, healthy appearing, comfortable, no acute distress and well developed Orientation: Patient oriented x3 Limitations: No limitations Head: Normal to inspection Ears: Hearing grossly normal bilaterally Nose: Normal external nose present Face and sinus: Normal facial exam Eyes: Appearance normal, both eyes and all related structures Neck: Normal visual inspection and Yes full ROM Respiratory: Normal respiratory effort and able to speak in complete sentences. Clear to auscultation bilaterally Cardiovascular: Regular rate and rhythm. Normal S1 and S2 GI: Normal to inspection. Soft to palpation and nontender Skin: No rashes or lesions noted Neuro: Patient oriented x3 Extremities: Normal to inspection Results - Labs: Normal blood count, electrolytes, renal function, blood sugar, liver function, and cholesterol levels in 2022 Plan Patient was informed and verbally consented to the use of an ambient scribe for clinic note documentation during this visit. 1. Preventative Care: Mammogram Screening The patient is advised to undergo mammogram screening due to her family history of breast cancer, with her mother diagnosed at age 48. This screening is part of her preventative care plan to monitor for early signs of breast cancer. 2. Family History Of Breast Cancer The patient's family history includes her mother being diagnosed with breast cancer at the age of 48. This history necessitates early and regular screening for the patient to manage her risk. Discussion Notes During the visit, I discussed the importance of mammogram screening due to the patient's family history of breast cancer. We also reviewed her lifestyle habits, emphasizing the need for increased physical activity and a balanced diet. I advised her on the updated guidelines regarding alcohol consumption and the importance of staying hydrated. Patient Instructions - Schedule a mammogram screening due to family history of breast cancer. - Increase physical activity to improve circulation and overall health. - Follow a balanced diet with more plant proteins and less animal proteins. - Limit alcohol intake to one drink per occasion. - Stay hydrated by drinking more water daily.
== END 2025-04-27 11:29 | disposition home or self-care (01) ==
LOC: HO.HMCH 10:23
PROVIDERS: PCP Internal Medicine; Visit Provider Internal Medicine
DX: Z00.00 Encounter for general adult medical examination without abnormal findings (principal)